=== PATIENT | female | born 2000 | race Caucasian/White ===

== ENCOUNTER 2020-04-06 02:39 | Emergency (ER) | payer SELFPAY ==
[~2020-04-06] VITALS: Ht 162.6 cm; Wt 73.9 kg
[2020-04-06 02:49] VITALS: Ht 162.6 cm; Wt 73.9 kg
[2020-04-06 04:03] VITALS: BP 128/79
== END 2020-04-06 04:03 | disposition home or self-care (01) ==
LOC: ED 02:39
DX: S61.531A Puncture wound without foreign body of right wrist, initial encounter (principal); Z90.49 Acquired absence of other specified parts of digestive tract; W54.0XXA Bitten by dog, initial encounter; Y93.89 Activity, other specified; Y92.89 Other specified places as the place of occurrence of the external cause; Y99.8 Other external cause status
CPT/HCPCS: Q0092